=== PATIENT | female | born 1965 | race Caucasian/White ===

== ENCOUNTER 2017-09-10 14:50 | Inpatient (IN) | payer OTHER ==
[~2017-09-10] VITALS: Ht 61 cm; Wt 5.0 kg
[~2017-09-10 14:50] MED LIST: ADVAIR 2501 DISK W/1; ADVAIR 2501 DISK W/1 IH; ALBUTEROL2.5 MG/3 M IH; AMARYL; AZITHROMYCIN500 MG PO; BACTRIM DS TAB1 EACH PO; BUCALSEP SPRAY30 ML MM; CEFTIN500 MG PO; CLOTRIMAZOLE10 MG MM; CONEX TABLET1 EACH PO; COZAAR50 MG; DOLOGESIC CAPLE1 TAB PO; FIORICET 50-321 EACH PO; FLUCONAZOLE100 MG PO; GLIMEPIRIDE2 MG; HYZAAR 100-12.1 EACH PO; HYZAAR 100-121 UDTAB PO; HYZAAR 100-251 UDTAB PO; INTEGRA PLUS C1 EACH PO; INTESTINEX1 CA1 PO; IOPHEN DM-100 MG/5 M PO; KETO10TA2 PO; LEVAQUIN750 MG PO; MEDROLPACK PO; METFORMIN HCL500 MG; ORPH100T PO; PENTOXIFYLLINE400 MG; PREDNISONE10 MG PO; PROMETHAZINE W473 ML PO; PROVENTIL3 ML/2.5 M IH; Pulmicort 0.5 MG/2 ML AMPUL IH; SIMVASTATIN20 MG PO; SINGULAIR 10MG10 MG PO; SYMBICORT 16010.2 GM IH; TENCON TABLET1 TAB PO; TUDORZA PRESS400 MCG; TUSSI-PRES B LIQ5 ML PO; Theo-24 PO; Trental PO; ULTRACET PO; ULTRAM50 MG PO; VENTOLIN HFA18 GM; ZANTAC300 MG; ZITHROMAX500 MG PO; ZOCOR20 MG; ZOCOR20 MG PO; ZYNCOF 20-400120 ML PO; ZoCOR 20MG TABLET PO
== END 2017-09-20 16:37 | disposition home or self-care (01) | DRG 203 ==
LOC: ER 14:50 → MEDI 09-11 10:11 → SEC-K 09-11 10:11 → MEDI 09-11 12:40
PROC: 3E0F7GC Introduction of Other Therapeutic Substance into Respiratory Tract, Via Natural or Artificial Opening (ICD-10-PCS; principal; 2017-09-11)
DX: J45.51 Severe persistent asthma with (acute) exacerbation (principal); R09.02 Hypoxemia; I10 Essential (primary) hypertension; E11.65 Type 2 diabetes mellitus with hyperglycemia; E66.01 Morbid (severe) obesity due to excess calories; G47.33 Obstructive sleep apnea (adult) (pediatric); E78.4 Other hyperlipidemia

== ENCOUNTER 2025-02-04 08:00 | Day surgery (SDC) | payer OTHER ==
[2025-02-03 12:50] VITALS: BP 136/67
[~2025-02-04] VITALS: Ht 157.5 cm; Wt 97.5 kg
[~2025-02-04 08:00] MED LIST changes: +AMLODIPINE-OLM1 EACH; +HYDROCHLOROTHIA25 MG PO
[2025-02-04] MEDS ORDERED: POVIDONE-IODINE 118 ML BOTT TOP ONE ×3 (14:15)
[2025-02-04] MEDS ORDERED: CEFAZOLIN SODIUM 1,000 MG VIAL IV ONE (14:15)
[2025-02-04] MEDS ORDERED: POVIDONE-IODINE SCRUB 118 ML BOTT TOP ONE ×2 (14:15)
[2025-02-04] MEDS ORDERED: GENTAMICIN SULFATE 40 MG/ML VIAL IR ONE (14:15)
[2025-02-04] MEDS ORDERED: CEFAZOLIN SODIUM 1,000 MG VIAL IJ ONE (14:15)
[2025-02-04] MEDS ORDERED: SUGAMMADEX SODIUM 200 MG/2 ML VIAL IV ONE (16:45)
== END 2025-02-04 19:50 | disposition home or self-care (01) ==
LOC: CIR.AMB 08:00
PROVIDERS: ATTEND Surgery
DX: D05.11 Intraductal carcinoma in situ of right breast (principal); D05.12 Intraductal carcinoma in situ of left breast; Z90.12 Acquired absence of left breast and nipple; N65.1 Disproportion of reconstructed breast

== ENCOUNTER 2025-02-25 12:21 | Day surgery (SDC) | payer OTHER ==
[~2025-02-25] VITALS: Ht 167.6 cm; Wt 65.8 kg
[2025-02-25] MEDS ORDERED: FAMOTIDINE/PF 20 MG in 0.9 % SODIUM CHLORIDE 8 ML IV PUSH SCH (12:34)
[2025-02-25] MEDS ORDERED: 0.9 % SODIUM CHLORIDE 1,000 ML IV SCH (12:45)
[2025-02-25] MEDS ORDERED: ACETAMINOPHEN 500 MG GEL..CAP PO PRN (12:45)
--- NOTE | 2025-02-25 12:55 | NUR ---
PACIENTE FEMINA, C/C CIRIGIA, SE ENVIA A SARAHY DE OPEREACIONES
[2025-02-25] MEDS ORDERED: CEFAZOLIN SODIUM 1,000 MG VIAL ONE (14:14)
[2025-02-25] MEDS ORDERED: GENTAMICIN SULFATE 40 MG/ML VIAL ONE (14:14)
[2025-02-25] MEDS ORDERED: CLINDAMYCIN PHOSPHATE 150 MG/ML (900mg) ONE (15:12)
[2025-02-25] MEDS ORDERED: ENALAPRILAT DIHYDRATE 1.25 MG/ML VIAL IV ONE (15:15)
[2025-02-25] MEDS ORDERED: SUGAMMADEX SODIUM 200 MG/2 ML VIAL IV ONE (15:22)
[2025-02-25] MEDS ORDERED: ALBUTEROL SULFATE 3 ML/2.5 MG AMPUL.NEB IH ONE (15:23)
[2025-02-25] MEDS ORDERED: ONDANSETRON HCL 2 MG/ML VIAL IV PRN (15:30)
[2025-02-25 22:24] VITALS: BP 117/67; O2SAT 100
== END 2025-02-25 17:40 | disposition home or self-care (01) ==
LOC: CIR.AMB 12:21 → ER 12:21 → CIR.AMB 12:21 → ER 12:36 → SEC-K 12:36 → EDSTATUS 14:00 → O/R 16:53 → SEC-K 16:53 → O/R 16:53 → CIR.AMB 17:40
PROVIDERS: ATTEND General Practice
DX: T85.49XA Other mechanical complication of breast prosthesis and implant, initial encounter (principal); N64.1 Fat necrosis of breast; T85.698A Other mechanical complication of other specified internal prosthetic devices, implants and grafts, initial encounter; D05.12 Intraductal carcinoma in situ of left breast; N61.0 Mastitis without abscess; Z90.12 Acquired absence of left breast and nipple